=== PATIENT | female | born 1945 | race African-American/Black ===

== ENCOUNTER 2021-11-04 17:07 | Emergency (ER) | payer OTHER ==
[~2021-11-04] VITALS: Ht 154.9 cm; Wt 68.0 kg
[~2021-11-04 17:07] MED LIST: ALBU1AER4 IN; AMLO-489 PO; ASPI1TAB20 PO; ATOR-47 PO; FURO1TAB32 PO; HYDR-4833 PO; OMEP20CA74 PO
[2021-11-04 17:36] VITALS: BP 171/81
[2021-11-04] MEDS ORDERED: LIDOCAINE VISCOUS 2% 15ML UD PO ONE (21:00)
[2021-11-04] MEDS ORDERED: FAMOTIDINE (10MG/ML) 2ML VL IV ONE (21:00)
== END 2021-11-04 23:43 | disposition left against medical advice (07) ==
LOC: EDUNIT# 17:07 → ER 17:07 → EDBD 17:07 → ER 23:43
DX: R10.9 Unspecified abdominal pain (principal); R11.0 Nausea; Z53.21 Procedure and treatment not carried out due to patient leaving prior to being seen by health care provider